=== PATIENT | female | born 1960 ===

== ENCOUNTER 2023-05-19 11:33 | Emergency (ER) | payer BC ==
[2023-05-19] MEDS ORDERED: Lidocaine 1% 5 ML VIAL INJECT ONE (11:48)
[2023-05-19] MEDS ORDERED: Bacitracin Oint 1 GM U/D Packet TOP ONE (12:13)
== END 2023-05-19 12:37 | disposition home or self-care (01) ==
LOC: LL.ED 11:33
DX: S61.412A Laceration without foreign body of left hand, initial encounter (principal); I10 Essential (primary) hypertension; E78.00 Pure hypercholesterolemia, unspecified; E03.9 Hypothyroidism, unspecified; Z79.899 Other long term (current) drug therapy; W26.0XXA Contact with knife, initial encounter
CPT/HCPCS: 12001; 99282; J3490